=== PATIENT | female | born 1990 | race African-American/Black ===

== ENCOUNTER 2017-10-31 19:22 | Observation (INO) | payer MEDICAID ==
[~2017-10-31] VITALS: Ht 162.6 cm; Wt 78.5 kg
[2017-10-31] MEDS ORDERED: PNV11TAB PO (20:12)
[2017-10-31] MEDS ORDERED: CALC-792 PO (20:12)
[2017-10-31] MEDS ORDERED: LACTATED RINGERS 1,000 ML IV SCH (20:30)
[2017-10-31] MEDS ORDERED: ACETAMINOPHEN 500MG TABLET PO NR (20:30)
[2017-10-31 20:39] LABS: CLARITY URINE CLEAR (CLEAR); COLOR URINE YELLOW (YELLOW); KETONES URINE NEGATIVE (NEGATIVE); LEUKOCYTE ESTERASE URINE NEGATIVE (NEGATIVE); NITRITE URINE NEGATIVE (NEGATIVE); OCCULT BLOOD URINE NEGATIVE (NEGATIVE); PH URINE 5.5 (4.5-8.0); PROTEIN URINE NEGATIVE (NEGATIVE); SPECIFIC GRAVITY URINE 1.028 (1.005-1.030); UROBILINOGEN URINE 0.2 E.U./dL (0.2-1.0)
== END 2017-10-31 21:50 | disposition home or self-care (01) ==
LOC: L&D 19:22
PROVIDERS: ADMIT Obstetrics & Gynecology; ATTEND Obstetrics & Gynecology
DX: O26.892 Other specified pregnancy related conditions, second trimester (principal); R10.30 Lower abdominal pain, unspecified; Z3A.27 27 weeks gestation of pregnancy
CPT/HCPCS: 81003; 99281; G0378; J7120; 96360; 96361